=== PATIENT | female | born 2000 | race African-American/Black ===

== ENCOUNTER 2019-11-26 11:19 | Emergency (ER) | payer SELFPAY ==
[~2019-11-26] VITALS: Ht 167.6 cm; Wt 55.8 kg
[2019-11-26 11:33] VITALS: BP 155/107
--- NOTE | 2019-11-26 11:45 | NUR ---
Triage completed, escorted out to lobby to wait for bed, slow steady gait without problem.
--- NOTE | 2019-11-26 11:46 | NUR ---
HR 120-130, BP 155/107, Charge Nurse Vero notified.
--- NOTE | 2019-11-26 12:03 | NUR ---
Pt taken to bed 5.
--- NOTE | 2019-11-26 12:14 | NUR ---
Dr. Piedra is evaluating the patient at bedside.
--- NOTE | 2019-11-26 12:28 | NUR ---
Dr. Piedra is re-evaluating the patient at bedside.
[2019-11-26] MEDS ORDERED: KETOROLAC 30 MG/ML VIAL IM ONE (12:30)
--- NOTE | 2019-11-26 12:35 | NUR ---
MEDICATED PER [facility] ORDER, TOLERATED WELL.
[2019-11-26 13:16] VITALS: BP 142/93
--- NOTE | 2019-11-26 13:16 | NUR ---
Patient discharged with v/s stable. Written and verbal after care instructions given and explained. Patient alert, oriented and verbalized understanding of instructions. Ambulatory with steady gait. All questions addressed prior to discharge. ID band removed. Patient advised to follow up with PMD. Rx of BETHAMETHASONE TOPICAL OINTMENT, TRIAMCINOLONE TOPICAL CREAM given. Patient educated on indication of medication including possible reaction and side effects. Opportunity to ask questions provided and answered.
== END 2019-11-26 13:16 | disposition home or self-care (01) ==
LOC: MED 11:19
DX: L30.9 Dermatitis, unspecified (principal); Z98.890 Other specified postprocedural states
CPT/HCPCS: 96372; 99283; J1885